=== PATIENT | male | born 1995 | race Caucasian/White ===

== ENCOUNTER 2024-07-02 15:12 | Emergency (ER) | payer SELFPAY ==
[2024-07-02] VITALS (8 sets, daily range): BP systolic 109–120; BP diastolic 56–65; PULSE 102–108; RESP 27–31; TEMP 37.6–38.3; O2SAT 93–97; BMI 26.4
--- NOTE | 2024-07-02 15:30 | EX.ED.DYSGE1 ---
HPI <OPAL Carter - Last Filed: 07/02/24 18:45> History of Present Illness Chief Complaint: Rash Narrative Narrative: 28-year-old Confucianism male with past medical history of psoriasis has had 1 week of generalized illness with subjective fever, chills, nausea, abdominal pain, and diarrhea. 3 days ago he started developing a rash started on his face as small red spots that became more confluent and then the next day the rash moved down onto his arms and thorax. No one else in his family is ill or has a rash. The patient is unvaccinated other than once receiving a Tdap shot. He states he was seen at the [facility] a few days ago and had a negative influenza test and had a nasal swab to test for measles and was told the results will not be back until Thursday. PFSH <OPAL Carter - Last Filed: 07/02/24 18:45> [facility] Medical History (Updated 07/02/24 @ 17:46 by OPAL Carter) Depression Psoriasis Medical History no medical history Home Medications ?Medication ?Instructions ?Recorded ?Last Taken ?Type ibuprofen 600 mg tablet 600 mg PO Q6H PRN PRN fever or 07/02/24 Unknown Rx pain #20 TABLETS promethazine 25 mg tablet 25 mg PO Q6H PRN nausea and 07/02/24 Unknown Rx vomiting #12 tabs Allergy/AdvReac Type Severity Reaction Status Date / Time No Known Allergies Allergy Verified 07/02/24 15:18 Family History no significant family his Surgical History no surgical history Social History Smoking Status: Never smoker ROS <OPAL Carter - Last Filed: 07/02/24 18:45> ROS ED ROS Narrative Constitutional: Positive for fever, chills, malaise. CVS: Negative for palpitations, chest pain. Respiratory: Negative for shortness of breath, cough. GI: Positive for abdominal pain, nausea, vomiting, diarrhea. : Negative for dysuria. Neuro: Negative for headache. EXAM <OPAL Carter - Last Filed: 07/02/24 18:45> Physical Exam Narrative Exam Narrative: CONST: Patient sitting in no acute distress. EYES: Normal inspection. ENT: Normal inspection, dry mucous membranes. NECK: Normal inspection. No meningismus. RESP: No respiratory distress, CTAB. CVS: Slightly tachycardic with regular rhythm, no murmur, no gallop. ABD: Soft and nontender, no guarding or rebound, nondistended. SKIN: Diffuse erythematous maculopapular rash most dense and confluent on the face, scattered across the chest abdomen and back as well as upper extremities. This is superimposed on large chronic psoriasis plaques on his arms and legs. No skin sloughing or blistering. EXTREMITIES: Normal appearance, no pedal edema. NEURO: Alert and answering questions appropriately. PSYCH: Normal affect. Const Vital Signs: 07/02/24 15:13 07/02/24 15:18 07/02/24 15:41 Temperature 101 F H 101 F H Temperature Source Oral Oral Pulse Rate 103 H 102 H Respiratory Rate 31 H 27 H Blood Pressure 120/65 120/65 Blood Pressure Mean 83 83 Pulse Ox 93 97 97 Oxygen Delivery Method Room Air Nasal Cannula Room Air Oxygen Flow Rate (L/min) 2 2 07/02/24 16:18 07/02/24 17:00 07/02/24 17:23 Temperature 100.8 F H 99.7 F H Temperature Source Oral Oral Pulse Rate 104 H 108 H Respiratory Rate 28 H 31 H Blood Pressure 109/56 L 109/56 L Blood Pressure Mean 73 73 Pulse Ox 94 93 Oxygen Delivery Method Nasal Cannula Nasal Cannula Oxygen Flow Rate (L/min) 2 2 07/02/24 17:51 07/02/24 18:00 Temperature 99.7 F H Temperature Source Pulse Rate 108 H 103 H Respiratory Rate 31 H Blood Pressure 109/56 L Blood Pressure Mean 73 Pulse Ox 93 93 Oxygen Delivery Method Oxygen Flow Rate (L/min) <Dr. Du Louis MD - Last Filed: 07/02/24 18:18> Physical Exam Const Vital Signs: 07/02/24 15:13 07/02/24 15:18 07/02/24 15:41 Temperature 101 F H 101 F H Temperature Source Oral Oral Pulse Rate 103 H 102 H Respiratory Rate 31 H 27 H Blood Pressure 120/65 120/65 Blood Pressure Mean 83 83 Pulse Ox 93 97 97 Oxygen Delivery Method Room Air Nasal Cannula Room Air Oxygen Flow Rate (L/min) 2 2 07/02/24 16:18 07/02/24 17:00 07/02/24 17:23 Temperature 100.8 F H 99.7 F H Temperature Source Oral Oral Pulse Rate 104 H 108 H Respiratory Rate 28 H 31 H Blood Pressure 109/56 L 109/56 L Blood Pressure Mean 73 73 Pulse Ox 94 93 Oxygen Delivery Method Nasal Cannula Nasal Cannula Oxygen Flow Rate (L/min) 2 2 07/02/24 17:51 07/02/24 18:00 Temperature 99.7 F H Temperature Source Pulse Rate 108 H 103 H Respiratory Rate 31 H Blood Pressure 109/56 L Blood Pressure Mean 73 Pulse Ox 93 93 Oxygen Delivery Method Oxygen Flow Rate (L/min) [facility] <OPAL Carter - Last Filed: 07/02/24 18:45> [facility] Narrative Medical decision making narrative: History gathered from: Patient and Consults: Infectious disease 28-year-old Confucianism male who is unvaccinated has had a febrile illness x 1 week and developed a diffuse maculopapular rash over the last 3 days that started on the head and progressed in a descending fashion. He reports having a respiratory swab measles test sent by another facility that has not yet resulted. He appears ill but nontoxic. He is febrile at 101 ?F, BP 120/65, HR 103, respiratory rate 31, 93% on room air. Due to tachypnea the nurse placed him on 2 L nasal cannula for comfort but he was not hypoxic. During my initial examination he is breathing easily around 18 times a minute and still saturating well around 97%. He has a diffuse red maculopapular rash that is confluent on the face and most dense on the thorax and arms. He also has chronic psoriasis plaques. Normal cardiopulmonary exam. Soft, benign abdomen. Septic workup was initiated. WBC is normal at 7.8 with a low lymphocyte level. Chemistry panel overall unremarkable. Total bilirubin and liver enzymes are elevated. Lactic 2.0. Blood and urine culture sent. CXR was read as mild cardiomegaly and pulmonary congestion, however my review I think it is negative. Clinically I think he has measles. The attending consulted infectious disease who agreed this is likely an measles can cause elevated liver enzymes. Since his vital signs are stable and he is not hypoxic he is appropriate for outpatient management. He states the prior clinic he was seen at give him Zofran ODT which did not help a lot so I prescribed Phenergan as well as ibuprofen. The health department was contacted and he was instructed to isolate and given return precautions. He was discharged in stable condition. Lab Data Attestation: I reviewed the patient's lab results. Labs: Laboratory Results - last 24 hr 07/02/24 15:15 WBC 7.8 RBC 5.25 Hgb 15.3 Hct 43.0 MCV 81.9 MCH 29.1 MCHC 35.6 RDW Std Deviation 36.3 RDW Coeff of Mildred 12.1 Plt Count 170 MPV 11.7 Immature Gran % (Auto) 0.400 Neut % (Auto) 93.1 H Lymph % (Auto) 4.4 L Hopkins % (Auto) 1.9 Eos % (Auto) 0.1 Baso % (Auto) 0.1 Absolute Neuts (auto) 7.3 Absolute Lymphs (auto) 0.34 L Nucleated RBC % 0 Diff Path Review May foll Atypical Lymphocytes 3+ Reactive Lymphocytes 2+ PT 15.9 H INR 1.2 APTT 32.9 Sodium 133 Potassium 4.0 Chloride 97 L Carbon Dioxide 24.6 Anion Gap 12 BUN 8 Creatinine 0.85 Estim Creat Clear Calc 128.23 Est GFR (MDRD) Non-Af 120 BUN/Creatinine Ratio 9.8 L Glucose 109 H Lactic Acid 2.0 Calcium 8.5 Total Bilirubin 3.23 H AST 366 H ALT 454 H Alkaline Phosphatase 167 H Total Protein 6.1 Albumin 3.4 L Globulin 2.7 Albumin/Globulin Ratio 1.3 Radiography Diagnostic Testing: Clinical Impression(s) from Imaging Studies Chest X-Ray 07/02/24 16:25 IMPRESSION: Mild cardiomegaly and pulmonary vascular congestion. Reading Location: [facility] ED attending interpretation 1 view chest x-ray shows normal heart size, no acute infiltrate. EKG Initial EKG: Attestation: I personally reviewed and interpreted this EKG as follows: Interpretation: No Acute Injury Pattern and Sinus Tachycardia Comments: Sinus tachycardia at [address] changes <Dr. Du Louis MD - Last Filed: 07/02/24 18:18> [facility] Lab Data Labs: Laboratory Results - last 24 hr 07/02/24 15:15 WBC 7.8 RBC 5.25 Hgb 15.3 Hct 43.0 MCV 81.9 MCH 29.1 MCHC 35.6 RDW Std Deviation 36.3 RDW Coeff of Mildred 12.1 Plt Count 170 MPV 11.7 Immature Gran % (Auto) 0.400 Neut % (Auto) 93.1 H Lymph % (Auto) 4.4 L Hopkins % (Auto) 1.9 Eos % (Auto) 0.1 Baso % (Auto) 0.1 Absolute Neuts (auto) 7.3 Absolute Lymphs (auto) 0.34 L Nucleated RBC % 0 Diff Path Review May foll Atypical Lymphocytes 3+ Reactive Lymphocytes 2+ PT 15.9 H INR 1.2 APTT 32.9 Sodium 133 Potassium 4.0 Chloride 97 L Carbon Dioxide 24.6 Anion Gap 12 BUN 8 Creatinine 0.85 Estim Creat Clear Calc 128.23 Est GFR (MDRD) Non-Af 120 BUN/Creatinine Ratio 9.8 L Glucose 109 H Lactic Acid 2.0 Calcium 8.5 Total Bilirubin 3.23 H AST 366 H ALT 454 H Alkaline Phosphatase 167 H Total Protein 6.1 Albumin 3.4 L Globulin 2.7 Albumin/Globulin Ratio 1.3 Radiography Diagnostic Testing: Clinical Impression(s) from Imaging Studies Chest X-Ray 07/02/24 16:25 IMPRESSION: Mild cardiomegaly and pulmonary vascular congestion. Reading Location: [facility] Treatment and Re-Evaluation Comments:: I have personally performed a face to face assessment of the patient and have reviewed the QUINTEN Note. I performed a substantive portion of the visit including all aspects of the following. My kelly findings include: History is prodromal fevers, cough/coryza for 1 week, rash started 3 days ago, patient very malaised having diarrhea, some nausea and vomiting and upset stomach, no dyspnea. Unvaccinated Confucianism. They said they went to an outpatient clinic and were tested for measles. They are concerned because he is feeling worse. Exam is appears malaised but no distress. Abdomen benign. Lungs are clear. Mildly tachycardic. Bilateral conjunctival injection with some minor crusting at the medial canthus bilaterally. No chemosis. Positive Koplik spots both buccal mucosa. Diffuse rash mixed with pre-existing psoriasis patches that is for the most part maculopapular, there are some other larger erythematous blanching patches that are about 1 to 2 cm in diameter but for the most part it is the small red maculopapular rash and no bullae or purpura. Medical Decison Making clinically this is all consistent with measles. Once we treated his fevers, he was breathing better and more conversive with us. Will give him a liter of fluid, obtain labs, he is not hypoxic but he kept telling the nurses to put the oxygen back on because it made him feel better. He is tolerating oral fluids after IV Zofran, he is asking for different oral medicine at home, so prescribing promethazine and advised him to continue using ibuprofen as needed for pain and/or fevers. Discussed with infectious disease Dr. Alcantar, he agrees with the patient resting at home away from as many people as possible, we advised him to expect the rash last 7-10 days total, it is expected that he would be feeling worst now, and there is no specific treatment other than supportive care. He is less likely to be contagious when the rash resolves, and then he will be likely to be having the coryza for another week or so. I reported to / discussed with Hope with the [facility] they will follow-up with him as well. Other additions or changes: [None] Discharge Plan Triage Chief Complaint: Rash ED Midlevel Provider: Marie Sparrow ED Provider: Du Louis Dx/Rx/DC Orders Clinical Impression: Measles, Transaminitis, Dehydration, mild Instructions: ED Measles ([place]) Prescriptions: New ibuprofen 600 mg tablet 600 mg PO Q6H PRN PRN (Reason: fever or pain) Qty: 20 0RF promethazine 25 mg tablet 25 mg PO Q6H PRN (Reason: nausea and vomiting) Qty: 12 0RF Primary Care Provider: Care Physician,No Primary Referrals: Care Physician,No Primary [Primary Care Provider] - Activity Restrictions/Additional Instructions: This is most likely measles which is a very infection viral illness. Treatment is supportive with rest, plenty of fluids to stay hydrated, and I prescribed nausea medicine and ibuprofen for fever or pain. You should stay isolated from other people and especially not be near people or children. If your symptoms significantly worsen or you cannot keep down fluids come back to the emergency room Print Language: Kenyan Disposition Disposition: Home, Self Care Discharge Date/Time: 07/02/24 18:11
--- NOTE | 2024-07-02 15:41 | EKG12_ITS ---
Test Reason : measels Blood Pressure : */* mmHG Vent. Rate : 102 BPM Atrial Rate : 102 BPM P-R Int : 140 ms QRS Dur : 84 ms QT Int : 304 ms P-R-T Axes : 61 52 44 degrees QTcB Int : 396 ms Sinus tachycardia Nonspecific ST abnormality Abnormal ECG Confirmed by JED CARMONA, BHAVANI ([id number]), editor continuity and script SHELTON TRIPLETT ([id number]) on 07/04/2024 6:42:08 AM Referred By: Confirmed By: BHAVANI ADKINS MD
[2024-07-02 15:56] LABS: Absolute Lymphocyte Count 0.34 X10^3/uL (0.83-4.51); Absolute Neutrophil Count 7.3 X10^3/uL (2.0-7.7); Basophil# 0.01 X10^3/uL; Basophil% 0.1 % (0-1); Eosinophil# 0.01 X10^3/uL; Eosinophils% 0.1 % (0-5); Hemoglobin 15.3 g/dL (13.0-16.5); Lymphocyte # 0.34 X10^3/ul (0.83-4.51); Lymphocyte % 4.4 % (19-41); Mean Corp Hgb Conc 35.6 g/dL (32-36); Mean Corpuscular Hgb 29.1 pg (27.0-32.0); Mean Corpuscular Volume 81.9 fL (80-94); Mean Platelet Vol. 11.7 fl (6.2-12.0); Monocyte# 0.15 X10^3/uL; Monocyte% 1.9 % (0-10); NRBC Flagged by Analyzer 0 % (0-5); Neutrophil # 7.25 X10^3/uL (2.7-7.7); Neutrophil % 93.1 % (47-70); POSITIVE DIFFERENTIAL YES; POSITIVE MORPHOLOGY YES; Platelet Count 170 K/mm3 (150-450); RBC Distribution Width CV 12.1 % (11.6-14.6); RBC Distribution Width SD 36.3 fl (35.1-43.9); Red Blood Count 5.25 M/mm3 (4.6-6.2); White Blood Count 7.8 K/mm3 (4.4-11.0)
[2024-07-02] MEDS: 0.9% Normal Saline (1000mL) 1,000 ML 999 ML IV (15:56)
[2024-07-02] MEDS: Acetaminophen 500 MG Tablet 1000 MG PO (15:57)
[2024-07-02] MEDS: Ondansetron 4 MG/2 ML Vial IV (15:57)
[2024-07-02 16:00] LABS: Differential Indicated SCAN CRITERIA MET
--- NOTE | 2024-07-02 16:25 | RAD_ITS ---
PROCEDURE: CHEST 1 VIEW (PORTABLE) 07/02/2024 REASON FOR EXAM: 28-year-old male, fever, weakness, tested positive for measles. TECHNIQUE: Frontal view of the chest. COMPARISON: None. FINDINGS: Hardware: Surgical clips overlie the left hemidiaphragm. Heart: Mild cardiomegaly with mild pulmonary vascular congestion. Lungs: No focal consolidation, pleural effusion or pneumothorax. Bones: The bones are unremarkable. RAD/Chest 1 View (Portable) IMPRESSION: Mild cardiomegaly and pulmonary vascular congestion. Reading Location: [id number]
[2024-07-02 16:31] LABS: International Normalized Ratio 1.2; Prothrombin Time (Protime)PT. 15.9 SECONDS (11.7-14.9)
[2024-07-02 16:32] LABS: Partial Thromboplast Time 32.9 Seconds (24.1-36.2)
[2024-07-02 16:33] LABS: ALB/GLOB Ratio 1.3 RATIO (0.9-2.4); AST(SGOT) 366 U/L (<=37); Alanine Aminotransfer ALT/SGPT 454 U/L (<=46); Albumin, Serum 3.4 g/dL (3.5-5.0); Alkaline Phosphatase 167 U/L (40-129); Anion Gap 12 (5-15); BUN 8 mg/dL (4-19); BUN/Creat Ratio 9.8 RATIO (10-20); Calcium,Total 8.5 mg/dL (7.6-11.0); Carbon Dioxide 24.6 mmol/L (21.0-32.0); Chloride 97 mmol/L (98-108); Creatinine, Serum 0.85 mg/dL (0.70-1.20); EST Glomerular Filtration Rate 120 (>60); Estimated Creatinine Clearance 128.23 ml/min (50-250); Globulin 2.7 g/dL (2.2-4.2); Glucose 109 mg/dL (70-99); Protein, Total 6.1 g/dL (5.9-8.4); Sodium Level 133 mmol/L (133-145); Total Bilirubin 3.23 mg/dL (0.00-1.30)
[2024-07-02 17:26] LABS: Atypical Lymphocyte 3+ %; Reactive Lymphocyte 2+
[2024-07-02 17:33] LABS: Pathologist Review May foll
--- NOTE | 2024-07-02 17:35 | ED.RN ---
[facility] NOTIFIED OF NEED FOR AFTER HOURS HEALTH DEPARTMENT PERSONNEL TO CONTACT [facility] ED REGARDING CASE PER DR. ORDAZ REQUEST
--- NOTE | 2024-07-02 18:14 | ED.RN ---
SPOKE WITH CEDRIC WHARTON FROM [facility] DEPARTMENT. UPDATED HER ON PT. DX. FAXING CHART TO HEALTH DEPARTMENT. SHE SPOKE WITH DR. ORDAZ SPOKE WITH HER WELL. STATES SHE WILL FOLLOW UP THURSDAY.
== END 2024-07-02 18:11 | disposition home or self-care (01) ==
PROVIDERS: Physician Assistant; Emergency Provider Emergency Medicine; Visit Provider Emergency Medicine
DX: B05.9 Measles without complication (principal); R74.01 Elevation of levels of liver transaminase levels; E86.0 Dehydration
CPT/HCPCS: 71045; 80053; 83605; 85025; 85610; 85730; 87040; 93005; 96361; 96374; 96376; 99284; J2405